=== PATIENT | female | born 1980 | race Caucasian/White ===

== ENCOUNTER 2023-02-06 13:57 | Outpatient (CLI) | payer OTHER, SELFPAY ==
[2023-02-06 14:35] LABS: Basophils Percent Auto 0.4 % (0.2-1.2); Eosinophils Absolute Auto 0.1 K/mm3 (0-0.3); Eosinophils Percent Auto 1.5 % (0-4.4); Hematocrit 39.5 % (37.0-47.0); Hemoglobin 12.5 g/dL (12.0-15.0); Immature Granulocyte Absolute 0.02 K/mm3 (0.00-0.031); Immature Granulocyte Percent A 0.2 % (0-0.5); Immature Platelet Fraction Pct 31.4 % (0.9-11.2); Lymphocytes Absolute Auto 2.62 K/mm3 (0.9-3.2); Lymphocytes Percent Auto 28.2 % (18.3-44.2); Mean Corpuscular HGB Conc 31.6 g/dl (32-36); Mean Corpuscular Hemoglobin 27.5 pg (26-34); Mean Corpuscular Volume 86.8 fl (80-100); Mean Platelet Volume 11.5 fl (7.4-10.4); Monocytes Absolute Auto 0.6 K/mm3 (0.1-0.6); Monocytes Percent Auto 6.2 % (2.6-8.5); Neutrophils Absolute Auto 5.9 K/mm3 (1.3-6.7); Neutrophils Percent Auto 63.5 % (45.5-73.1); Red Blood Count 4.55 M/mm3 (4.2-5.4); Red Cell Distribution Width 14.5 % (11.5-14.5); White Blood Count 9.3 K/mm3 (4.5-10.0)
[2023-02-06 14:45] LABS: Alanine Aminotransferase 228 U/L (6-35); Albumin Level 4.1 g/dL (3.5-5.1); Alkaline Phosphatase 118 U/L (38-126); Anion Gap 5 mmol/L (8-16); Aspartate Amino Transferase 54 U/L (14-36); Bilirubin,Total 0.4 mg/dL (0.2-1.3); Blood Urea Nitrogen 15 mg/dL (7-17); Calcium 9.2 mg/dL (8.4-10.2); Carbon Dioxide 25 mmol/L (22-30); Chloride 105 mmol/L (98-107); Cholesterol 271 mg/dL (0-200); Estimated Glomerular Filt Rate > 60; Glucose 101 mg/dL (65-110); HDL Direct 56 mg/dL; Potassium 3.9 mmol/L (3.4-5.0); Sodium 135 mmol/L (137-145); Triglycerides 147 mg/dL (<150)
[2023-02-06 14:56] LABS: LDL Cholesterol Direct 149 mg/dL
[2023-02-06 15:09] LABS: Hemoglobin A1C 5.6 % (<5.7)
[2023-02-06 15:14] LABS: Thyroid Stimulating Hormone 0.776 uIU/mL (0.465-4.680)
[2023-02-06 15:21] LABS: Free T4 Free Thyroxine 0.98 ng/mL (0.78-2.19)
== END 2023-02-06 13:58 | disposition home or self-care (01) ==
LOC: ANHLAB 14:02
PROVIDERS: Visit Provider Physician Assistant
DX: Z00.00 Encounter for general adult medical examination without abnormal findings (principal)
CPT/HCPCS: 36415; 80053; 80061; 83036; 84439; 84443; 85025; 85055

== ENCOUNTER 2024-04-13 15:59 | Emergency (ER) | payer OTHER, SELFPAY ==
[2024-04-13 16:05] VITALS: BP 119/73; PULSE 66; RESP 16; TEMP 36.6; O2SAT 99
--- NOTE | 2024-04-13 16:36 | ED.URI ---
HPI - URI/Sore Throat General Chief Complaint: Upper Respiratory Infection Stated Complaint: Covid test Time Seen by Provider: 04/13/24 16:29 Source: patient and RN notes reviewed Mode of arrival: ambulatory Limitations: no limitations History of Present Illness HPI Narrative: Patient presents today with a 2 day history of cough, headache, nasal congestion. Denies shortness of breath or fever. She has been taking Tylenol for her symptoms with some relief. Reports several family members at home are sick with COVID-19. Related Data Home Medications Medication Instructions Recorded Confirmed albuterol sulfate 90 mcg/actuation inhalation 04/13/24 04/13/24 aerosol inhaler amlodipine 10 mg tablet mg 04/13/24 escitalopram oxalate 20 mg tablet mg 04/13/24 fluticasone 250 mcg-salmeterol 50 inhalation 04/13/24 mcg/dose blistr powdr for inhalation (Advair Diskus) Allergies Allergy/AdvReac Type Severity Reaction Status Date / Time amoxicillin Allergy Intermediate Hives / Unverified 06/28/18 12:50 [place] aspirin Allergy Mild Verified 06/28/18 12:50 codeine Allergy Unknown Hives / Unverified 06/28/18 12:50 [place] morphine Allergy Unknown Hives / Unverified 06/28/18 12:50 [place] NSAIDS (Non-Steroidal Allergy Unknown Verified 06/28/18 12:50 Anti-Inflamma Penicillins Allergy Unknown Hives / Unverified 06/28/18 12:50 [place] shellfish derived Allergy Unknown Anaphylactic Verified 06/28/18 12:50 Shock NSA Allergy Mild Hives / Uncoded 03/11/14 00:30 Red Face Review of Systems Review of Systems: CONSTITUTIONAL: Denies body aches, fever, chills, or sweats. EYES: Denies visual changes, redness, or discharge. ENT: Denies rhinorrhea, sore throat, or otalgia.+ congestion CARDIOVASCULAR: Denies chest pain, palpitations, or edema. RESPIRATORY: Denies dyspnea.+ cough GASTROINTESTINAL: Denies abdominal pain, nausea, vomiting, or diarrhea. GENITOURINARY: Denies dysuria or hematuria. SKIN: Denies rash, itching, or wounds. MUSCULOSKELETAL: Denies back pain, joint pain, or myalgia. NEUROLOGIC: Denies numbness, tingling, or weakness.+ headache PSYCH: Denies depression or anxiety. PMFSH Comments At time of signature, I have reviewed and agree with nursing past medical, surgical, social and family history unless otherwise noted. Please see nursing chart for further information. There is no relevant family history pertinent to the presenting complaint Exam Narrative: GENERAL: Mildly ill-appearing, well-nourished, and in no acute distress. HEAD: Normocephalic, atraumatic. EYES: EOMI. No redness or drainage. Conjunctivae normal. ENT: Mucous membranes pink and moist. Nares congested. No rhinorrhea. TMs normal bilaterally. Throat normal. Uvula midline. NECK: Normal AROM. Supple. No lymphadenopathy. CHEST: No respiratory distress. Clear to auscultation. HEART: Regular rate and rhythm. No murmur appreciated. EXTREMITIES: Normal range of motion. No edema. SKIN: Warm, dry, no rash. Capillary refill normal. Normal skin turgor. NEURO: No focal deficits. Alert and oriented x3. Gait steady. PSYCH: Normal affect. No signs of depression or anxiety. Course Course Level of Care: Express Care Visit Vital Signs Vital signs: Vital Signs Temperature 97.9 F 04/13/24 16:05 Pulse Rate 66 04/13/24 16:05 Respiratory Rate 16 04/13/24 16:05 Blood Pressure 119/73 04/13/24 16:05 Pulse Oximetry 99 04/13/24 16:05 Oxygen Delivery Room Air 04/13/24 16:05 Temperature 97.9 F 04/13/24 16:05 Pulse Rate 66 04/13/24 16:05 Respiratory Rate 16 04/13/24 16:05 Blood Pressure 119/73 04/13/24 16:05 Pulse Oximetry 99 04/13/24 16:05 Oxygen Delivery Room Air 04/13/24 16:05 Reviewed MDM - URI/Sore Throat MDM Narrative Medical decision making narrative: COVID negative. Symptoms likely viral in etiology. Discussed [id number] medication use and
[2024-04-13 16:54] LABS: EDCOVIDSCREEN Negative (Negative)
== END 2024-04-13 17:10 | disposition home or self-care (01) ==
PROVIDERS: Emergency Provider Nurse Practitioner
DX: J06.9 Acute upper respiratory infection, unspecified (principal); Z20.822 Contact with and (suspected) exposure to COVID-19
CPT/HCPCS: 87426; 99212; G0463